=== PATIENT | female | born 2005 | race African-American/Black ===

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

== ENCOUNTER 2024-03-13 07:04 | Emergency (ER) | payer MEDICAID ==
[~2024-03-13] VITALS: Ht 175.3 cm; Wt 118.2 kg
[2024-03-13 07:54] VITALS: TEMP 98.6
[2024-03-13 08:25] LABS: BASO % 0.3 % (0.0-2.0); EOS # 0.1 K/mm3 (0.0-0.7); EOS % 0.9 % (0.0-4.0); GRAN # 8.2 K/mm3 (1.4-6.5); GRAN % 74.3 % (42.2-75.2); HEMATOCRIT 40.3 % (35.0-45.0); HEMOGLOBIN 13.7 g/dl (12.0-15.0); LYMPH # 2.2 K/mm3 (1.2-3.4); LYMPH % 20.1 % (20.0-51.0); MEAN CELL VOLUME 86 fl (80.0-95.0); MEAN CORPUSCULAR HEMOGLOBIN 29 pg (26-32); MEAN CORPUSCULAR HGB CONC 34 g/dl (33.0-37.0); MEAN PLATELET VOLUME 10.5 fl (7.4-10.4); MONO # 0.4 K/mm3 (0.1-0.6); MONO % 3.9 % (1.7-9.3); PLATELET COUNT 328 K/mm3 (130-400); REDCELL DISTRIBUTION WIDTH-CV 13.7 % (11.5-14.5)
[2024-03-13 09:17] LABS: ALBUMIN 3.9 g/dL (3.5-5.0); BILIRUBIN,TOTAL 0.3 mg/dL (0.2-1.2); CREATININE, serum 0.69 mg/dL (0.57-1.11); POTASSIUM 3.6 mEq/L (3.5-4.5); TOTAL PROTEIN 7.8 g/dl (6.2-8.1)
[2024-03-13 09:30] LABS: COLLECTION METHOD CLEAN CATCH
[2024-03-13 09:40] LABS: PH 5.5 (5.0-8.5); URINE APPEARANCE CLEAR (CLEAR/HAZY); URINE BLOOD 3+ (NEGATIVE); URINE COLOR YELLOW (YELLOW); URINE GLUCOSE 3+ (NEGATIVE); URINE KETONE TRACE (NEGATIVE); URINE NITRATE NEGATIVE (NEGATIVE); URINE PROTEIN(semi-quant) TRACE (NEGATIVE)
[2024-03-13 10:08] VITALS: BP 125/97
[2024-03-13 10:38] VITALS: PULSE 81
== END 2024-03-13 10:47 | disposition home or self-care (01) ==
LOC: COL.ER 07:04
PROVIDERS: Family Medicine
DX: O20.8 Other hemorrhage in early pregnancy (principal); O24.111 Pre-existing type 2 diabetes mellitus, in pregnancy, first trimester; Z79.4 Long term (current) use of insulin; Z3A.13 13 weeks gestation of pregnancy